=== PATIENT | female | born 1985 | race American Indian/Alaskan Native ===

== ENCOUNTER 2020-10-02 11:03 | Outpatient (CLI) | payer OTHER | END 2020-10-02 11:23 | disposition home or self-care (01) | LOC: NST 11:03 | PROVIDERS: ATTEND Obstetrics & Gynecology Maternal & Fetal Medicine | DX: Z34.83 Encounter for supervision of other normal pregnancy, third trimester (principal) ==

== ENCOUNTER 2020-10-06 10:02 | Outpatient (CLI) | payer OTHER | END 2020-10-06 10:44 | disposition home or self-care (01) | LOC: NST 10:02 | PROVIDERS: ATTEND Obstetrics & Gynecology Maternal & Fetal Medicine | DX: Z34.83 Encounter for supervision of other normal pregnancy, third trimester (principal) ==

== ENCOUNTER 2020-10-10 08:58 | Outpatient (CLI) | payer OTHER | END 2020-10-10 09:33 | disposition home or self-care (01) | LOC: NST 08:58 | PROVIDERS: ATTEND Obstetrics & Gynecology Maternal & Fetal Medicine | DX: Z34.83 Encounter for supervision of other normal pregnancy, third trimester (principal) ==

== ENCOUNTER 2022-09-06 09:30 | Inpatient (IN) | payer OTHER ==
[~2022-09-06] VITALS: Ht 167.6 cm; Wt 4.1 kg
[2022-09-14] MEDS ORDERED: OXYC1TAB9 PO (10:18)
== END 2022-09-14 10:26 | disposition home or self-care (01) | DRG 785 ==
LOC: O/R 09-11 06:22 → OB/GYN 09-11 06:22
PROVIDERS: ADMIT Obstetrics & Gynecology; ATTEND Obstetrics & Gynecology
PROC: 0UB70ZZ Excision of Bilateral Fallopian Tubes, Open Approach (ICD-10-PCS; 2022-09-11)
PROC: 4A1HXCZ Monitoring of Products of Conception, Cardiac Rate, External Approach (ICD-10-PCS; 2022-09-11)
PROC: 10D00Z1 Extraction of Products of Conception, Low, Open Approach (ICD-10-PCS; principal; 2022-09-11 08:30)
DX: O34.211 Maternal care for low transverse scar from previous cesarean delivery (principal); Z3A.39 39 weeks gestation of pregnancy; Z37.0 Single live birth; Z30.2 Encounter for sterilization; Z20.822 Contact with and (suspected) exposure to COVID-19